=== PATIENT | female | born 1955 | race Caucasian/White ===

== ENCOUNTER 2019-10-25 09:35 | Emergency (ER) | payer MEDICARE, MEDICAID ==
[~2019-10-25] VITALS: Ht 167.6 cm; Wt 59.0 kg
[~2019-10-25 09:35] MED LIST: ONDA4TAB7 PO
--- NOTE | 2019-10-25 09:53 | NUR ---
PRESENTS VIA POV WITH NAUSEA/LOWER BACK PAIN & REPORTED LOWER LIP SWELLING- WHICH SHE SUMMARIZES "ANOTHER PANCREATIC STONE." NOT LIP SWELLING NOTED PER MY ASSESSMENT REPORTS HX OF MIAN, AND PANCREATIC INSUFFICIENCY (TAKES CREON), REPORTS ETOH ONLY OCCASIONALLY APPEARS NAUSEATED BUT VSS. UP TO RESTROOM TO VOID
[2019-10-25] MEDS ORDERED: ONDANSETRON 2MG/ML, 2ML ONE (10:10)
[2019-10-25] MEDS ORDERED: FAMOTIDINE 20 MG/2 ML ONE (10:11)
[2019-10-25] MEDS ORDERED: MORPHINE SULFATE 4 MG/ML, 1ML ONE ×2 (10:11→11:40)
[2019-10-25 10:20] LABS: MICROSCOPIC INDICATED
[2019-10-25] MEDS: MORPHINE SULFATE 4 MG/ML, 1ML IVPush PRN ×2 (10:23→11:46)
--- NOTE | 2019-10-25 10:25 | NUR ---
REPORT FROM MEIR SCHRADER, ASSUME CARE OF PT AT THIS TIME. IV PLACED, LABS DRAWN WITH START. PT MEDICATED FOR NAUSEA W/DRY HEAVING, PAIN TO ABD RATED 7-8/10. PT WITH IMMEDIATE RELIEF. BP CUFF, PULSE OX PLACED. LIGHTS DIMMED, FAMILY AT BS, CALL LIGHT WITHIN REACH. PT AND FAMILY UPDATED ON ORDERS/POC.
[2019-10-25] MEDS ORDERED: SODIUM CHLORIDE FLUSH 10ML SYR IVF ONE (10:30)
[2019-10-25] MEDS ORDERED: FAMOTIDINE 20 MG/2 ML IV ONE (10:30)
[2019-10-25] MEDS ORDERED: ONDANSETRON 2MG/ML, 2ML IVPush ONE (10:30)
[2019-10-25 10:31] LABS: CULTURE INDICATED? YES
[2019-10-25 10:31] LABS: BASOPHILS # (AUTO) 0.01 x10^3/uL (0-0.1); BASOPHILS % (AUTO) 0 % (0-1); EOSINOPHILS % (AUTO) 0 % (1-7); LYMPHOCYTES # (AUTO) 1.15 x10^3/uL (1-3.4); LYMPHOCYTES % (AUTO) 9 % (22-44); MD NO; MEAN CORPUSCULAR HEMOGLOBIN 32.3 pg (27.0-34.8); MEAN CORPUSCULAR HGB CONC 33.4 g/dL (32.4-35.8); MEAN CORPUSCULAR VOLUME 96.7 fL (80-100); MEAN PLATELET VOLUME 8.2 fL (7.4-10.4); MONOCYTES # (AUTO) 0.13 x10^3/uL (0.2-0.8); MONOCYTES % (AUTO) 1 % (2-9); NEUTROPHILS # (AUTO) 11.34 x10^3/uL (1.8-6.8); NEUTROPHILS % (AUTO) 90 % (42-75); PLATELET COUNT 325 x10^3/uL (130-400); RED BLOOD COUNT 4.71 x10^6/uL (3.82-5.3); RED CELL DISTRIBUTION WIDTH 13.2 % (9.6-15.2)
[2019-10-25 10:39] LABS: ALANINE AMINOTRANSFERASE 30 U/L (12-78); ALBUMIN 4.4 g/dL (3.4-5.0); ANION GAP 10 mmol/L (5-15); CALCIUM 8.9 mg/dL (8.5-10.1); CHLORIDE 107 mmol/L (98-107); CREATININE 0.99 mg/dL (0.55-1.02)
[2019-10-25 10:42] LABS: ALKALINE PHOSPHATASE 93 U/L (45-117); BILIRUBIN,TOTAL 0.7 mg/dL (0.2-1.0); TOTAL PROTEIN 7.6 g/dL (6.4-8.2)
--- NOTE | 2019-10-25 11:07 | NUR ---
ALL RESULTS BACK, PT FOR RECHECK.
[2019-10-25] MEDS ORDERED: DIPHENHYDRAMINE 50 MG/ML, 1ML IVPush ONE (11:30)
[2019-10-25] MEDS ORDERED: MORPHINE SULFATE 4 MG/ML, 1ML IVPush ONE (11:30)
[2019-10-25] MEDS ORDERED: METOCLOPRAMIDE 5 MG/ML, 2ML IVPush ONE (11:30)
[2019-10-25] MEDS ORDERED: DIPHENHYDRAMINE 50 MG/ML, 1ML ONE (11:39)
[2019-10-25] MEDS ORDERED: METOCLOPRAMIDE 5 MG/ML, 2ML ONE (11:40)
--- NOTE | 2019-10-25 11:50 | NUR ---
PT MEDICATED PER ERP ORDER FOR PERSISTENT NAUSEA AND PAIN.
[2019-10-25 13:28] VITALS: BP 136/84
== END 2019-10-25 13:30 | disposition home or self-care (01) ==
LOC: ED 10:37
DX: R10.13 Epigastric pain (principal); R11.2 Nausea with vomiting, unspecified; M54.5 Low back pain; Z90.710 Acquired absence of both cervix and uterus
CPT/HCPCS: 36415; 80053; 81001; 83690; 85025; 87086; 96374; 96375; 96376; 99283; J1200; J2270; J2405; J2765; J3490